=== PATIENT | male | born 1955 | race Caucasian/White ===

== ENCOUNTER 2017-01-13 04:47 | Emergency (ER) | payer OTHER ==
[~2017-01-13] VITALS: Ht 188 cm; Wt 104.3 kg
[~2017-01-13 04:47] MED LIST: DILT60CA PO; FLUT1DIS28 IH; FURO-151 PO; METO50TA3 PO; WARF5TAB77 PO
[2017-01-13] MEDS ORDERED: ALBU8HFA4 INH (04:59)
[2017-01-13] MEDS ORDERED: DIGO125T PO (04:59)
[2017-01-13] MEDS ORDERED: CLOP75TA2 PO (04:59)
--- NOTE | 2017-01-13 06:12 | NUR ---
Patient discharged to home in stable conditon with taking patient home. Written and verbal after care instructions given. Patient verbalizes understanding of instructions.
[2017-01-13 06:14] VITALS: BP 122/82
== END 2017-01-13 06:16 | disposition home or self-care (01) ==
LOC: ER 04:51
DX: Z47.89 Encounter for other orthopedic aftercare (principal); I10 Essential (primary) hypertension; I50.9 Heart failure, unspecified; I48.91 Unspecified atrial fibrillation; J44.9 Chronic obstructive pulmonary disease, unspecified; F10.20 Alcohol dependence, uncomplicated; F17.200 Nicotine dependence, unspecified, uncomplicated; Z88.0 Allergy status to penicillin; Z79.01 Long term (current) use of anticoagulants; Z59.0 Homelessness
CPT/HCPCS: A4663